=== PATIENT | female | born 1950 | race Caucasian/White ===

== ENCOUNTER 2020-02-25 06:54 | Day surgery (SDC) | payer OTHER ==
[2020-02-24 09:42] VITALS: BMI 38.7
--- NOTE | 2020-02-25 07:04 | HP ---
History & Physical Update - History History: No Change - Physical Physical: No Change - Assessment Assessment: No Change - Plan Plan: No Change (H&P reviwed , no changes , for TVH, a.p repair, pernioplsty)
[2020-02-25] MEDS ORDERED: PROPOFOL 20 ML ONE ×2 (08:54)
[2020-02-25] MEDS ORDERED: fentaNYL CITRATE 250 MCG/5 ML VIAL ONE (08:54)
[2020-02-25] MEDS ORDERED: MIDAZOLAM HCL 2 MG/2 ML SINGLE DOSE VIAL ONE (08:54)
[2020-02-25] MEDS ORDERED: metroNIDAZOLE 0.75% VAGINAL GEL 70 GM TUBE ONE (09:03)
[2020-02-25] MEDS ORDERED: ceFAZolin SODIUM 1 GM VIAL IVPB ONE (09:25)
[2020-02-25] MEDS ORDERED: ONDANSETRON 4 MG/2 ML VIAL IVPUSH PRN ×2 (10:17→11:51)
[2020-02-25] MEDS ORDERED: LACTATED RINGERS SOLUTION 1,000 ML IV SCH (10:30)
[2020-02-25] MEDS ORDERED: NEOSTIGMINE METHYLSULFATE 0.5 MG/ML - 10 ML MDV ONE (11:28)
[2020-02-25] MEDS ORDERED: IBUPROFEN 600 MG TABLET (FP) PO PRN (11:51)
--- NOTE | 2020-02-25 11:59 | OP ---
Operative Note - Note: Operative Date: 02/25/20 Pre-Operative Diagnosis: uterovaginal prolapse, cystorectocele Operation: vaginal hysterectomy , cystorectocele repair , perineoplasty Findings: large cystorectocele , uterine prolapse , gaping vaginal interetous, pelvic adhesions Post-Operative Diagnosis: Same as Pre-op Surgeon: Joshua Cotter Heavy Equipment Field Mechanic: Radha Henao Anesthesia: General Specimens Removed: cx uterus, ant. vaginal mucosa, post. vaginal mucosa Estimated Blood Loss (mls): 250 Drains & Tubes with Location: walker Drains, Volume Out (mls): 400 Blood Volume Replaced (mls): 0 Fluid Volume Replaced (mls): 1,000 Operative Report Dictated: Yes
[2020-02-25] MEDS ORDERED: ELECTROLYTE-148 SOLN 1,000 ML IV SCH (12:00)
[2020-02-25] MEDS: IBUPROFEN 800 MG/8 ML IJ IVPB PRN (12:53)
[2020-02-25] MEDS ORDERED: CEFAZOLIN 1 GM/D5W 1 GM/50 ML BAG IVPB SCH (18:00)
[2020-02-25] MEDS ORDERED: ACETAMINOPHEN 325 MG TABLET (FP) ONE (20:27)
[2020-02-25] MEDS: oxyCODONE HCL 5 MG TABLET PO PRN (20:29)
[2020-02-25] MEDS ORDERED: ACETAMINOPHEN 325 MG TABLET (FP) PO PRN (22:01)
[2020-02-26] MEDS ORDERED: PT OWN MED DRAWER 7, Y5N ONE (01:24)
[2020-02-26] MEDS ORDERED: ceFAZolin SODIUM 1 GM VIAL ONE ×2 (01:25→09:03)
[2020-02-26] MEDS ORDERED: DEXTROSE 5%-WATER - 50 ML IVPB ONE ×2 (01:26→09:03)
[2020-02-26] MEDS: CEFAZOLIN 1 GM in DEXTROSE 5%-WATER - 50 ML IVPB SCH ×2 (01:29→09:20)
[2020-02-26] MEDS: oxyCODONE HCL 5 MG TABLET PO PRN ×2 (01:44→06:10)
[2020-02-26] MEDS: IBUPROFEN 800 MG/8 ML IJ IVPB PRN (08:03)
[2020-02-26 08:08] LABS: BLOOD UREA NITROGEN 13.2 mg/dL (7-18); CALCIUM 8.7 mg/dL (8.5-10.1); CREATININE 0.7 mg/dL (0.55-1.3); POTASSIUM 4.4 mmol/L (3.5-5.1)
[2020-02-26 08:10] LABS: HEMATOCRIT 30.6 % (32.4-45.2); MCH 27.7 pg (25.7-33.7); MCHC 32.7 g/dl (32.0-36.0); MEAN CELL VOLUME 84.7 fl (80-96); MEAN PLT VOLUME 8.7 fl (7.5-11.1); PLATELET COUNT 296 K/MM3 (134-434); RBC 3.61 M/mm3 (3.60-5.2); RDW 16.2 % (11.6-15.6)
[2020-02-26] MEDS ORDERED: BISACODYL 5 MG TABLET.DR (FP) PO ONE (08:29)
[2020-02-26] MEDS ORDERED: GABAPENTIN 100 MG CAPSULE PO SCH (10:00)
[2020-02-26] MEDS ORDERED: LABETALOL HCL 200 MG TABLET (FP) PO SCH (10:00)
[2020-02-26] MEDS ORDERED: ENOXAPARIN NA (PORCINE) 40 MG/0.4 ML DISP.SYRIN SQ SCH (10:00)
[2020-02-26] MEDS ORDERED: amLODIPine BESYLATE 10 MG TABLET (FP) PO SCH (10:00)
[2020-02-26 10:54] VITALS: BP 122/74; PULSE 77; TEMP 98.1
--- NOTE | 2020-02-27 09:20 | OP ---
DATE OF OPERATION: 02/25/2020 PREOPERATIVE DIAGNOSES: Uterovaginal prolapse, cystocele, rectocele. POSTOPERATIVE DIAGNOSES: Uterovaginal prolapse, cystocele, rectocele. PROCEDURE: Transvaginal hysterectomy, cystocele, rectocele and perineoplasty. SURGEON: Joshua Cotter MD COMPENSATION ADMINISTRATOR: Radha Henao MD ANESTHESIA: General. ESTIMATED BLOOD LOSS: 200 mL. OPERATION: Patient was taken to operating room, had adequate general anesthesia induced. In dorsal lithotomy position abdomen and perineum were prepped and draped and the vagina was prepped with Betadine. Then examination under anesthesia revealed a large rectocele and large cystocele with uterine prolapse. No adnexal masses were palpable. Then with a weighted speculum in the vagina anterior and posterior lip of the cervix was grasped with 2 single-tooth tenacula. Anterior vaginal mucosa and posterior vaginal mucosa were infiltrated with diluted solution of vasopressin. Then a circumferential incision was made with the cautery around the cervix. Posterior vaginal mucosa was dissected from the cervix with Metzenbaum scissors and with blunt dissection. Then bladder was also dissected with Metzenbaum scissors and blunt dissection and bladder was pushed up. Then the posterior peritoneum was grasped with a pickup and then entered with the Metzenbaum scissors. Then posterior peritoneum was tacked to the posterior vaginal mucosa with 1-0 Vicryl suture. Then bladder was further pushed up and elevated and then uterosacral ligament was identified and clamped with Gricel bilaterally and cut and the clamp replaced with 0 Vicryl suture bilaterally. These pedicles were help. Parametrium was grasped with Gricel clamp and cut and the clamp replaced with 0 Vicryl suture bilaterally. At this time bladder was further pushed up and then could not enter the anterior peritoneum because of dense adhesions. The bladder was also dissected further and elevated. Uterine artery was identified bilaterally, clamped and cut and the clamp replaced with 0 Vicryl suture bilaterally. The anterior peritoneum was unable to enter because of adhesions in the anterior portion of the vagina. Uterus also was obscured by adhesions and unable to palpate. Part of the upper pedicle was grasped with Gricel clamp and cut and the clamp replaced with 0 Vicryl suture bilaterally and these pedicles were tagged and sutured with 2-0 Vicryl suture. Then the specimen was removed and pelvic cavity irrigated. No active bleeding was seen. There was oozing from the vaginal vault area which was sutured with interrupted sutures of 0 Vicryl and hemostasis was established. Then peritoneum was closed with 0 Vicryl interrupted suture and peritoneum was closed and then posterior vaginal mucosa was closed with interrupted suture of 2-0 Vicryl. Then cystocele repair was started by infiltrating the anterior vaginal mucosa with vasopressin and then vaginal mucosa was undermined with Metzenbaum scissors and from the vaginal mucosa. Bladder was from vaginal mucosa with sharp and blunt dissection and then the bladder was completely from the vaginal mucosa and then with a pursestring suture placed the cystocele was reduced and then interrupted suture of 3-0 Vicryl was placed over the bladder, mattress suture, for reinforcement. Then excess vaginal mucosa was cut and vaginal mucosa was closed with continuous suture of 2-0 Vicryl. Then posterior vaginal mucosa was infiltrated with diluted solution of vasopressin and posterior vaginal mucosa was undermined with Metzenbaum scissors and from the rectum. The rectum was reduced with interrupted suture of 2-0 Vicryl in mattress sutures. Then excess posterior vaginal mucosa was cut and vaginal mucosa was brought together with continuous suture of 2-0 Vicryl. Then perineoplasty was started by removing excess skin from the posterior perineum and then muscles were identified and then a figure-of-8 suture was placed into the muscle and muscles were approximated and then the rest of the procedure the perineum was closed in episiotomy-like fashion and then interrupted suture of 2-0 Vicryl was placed in the skin for reinforcement in the posterior perineum. Starkey catheter was inserted. There was 400 clear urine noted. No active vaginal bleeding was seen. Vaginal packing was inserted. Patient tolerated procedure well, left the OR in good condition. Irving [id number]
--- NOTE | 2020-02-29 11:45 | PATH ---
Surgical Pathology Report Patient Name: CARMEN AWAD Med. Rec. #: [id number] /Age/Gender: 1950 (Age: 69) / F Account: <[id number]> Location: [facility] MED/SURG Taken: 02/25/2020 Received: 02/25/2020 Reported: 02/29/2020 Physicians: Joshua Cotter M.D. Specimen(s) Received UTERUS AND CERVIX, VAGINAL MUCOSA Clinical History Complete uterovaginal prolapse Final Diagnosis UTERUS AND CERVIX, VAGINA MUCOSA, HYSTERECTOMY: ONE SUBSEROSAL LEIOMYOMA WITH HYALINIZATION. ATROPHIC ENDOMETRIUM. CERVIX WITH MILD CHRONIC CERVICITIS, SQUAMOUS METAPLASIA, AND NABOTHIAN CYSTS. PORTIONS OF VAGINA MUCOSA WITH FOCAL PARAKERATOSIS, NEGATIVE FOR DYSPLASIA. Electronically Signed Sheng Monsivais M.D. Gross Description Received in formalin labeled "uterus and cervix, vaginal mucosa," is an 18 g markedly deformed appearing uterus with an attached cervix and no attached adnexa. The specimen measures 7.5 cm from superior to inferior, 2 cm from left to right and 1.7 cm from anterior to posterior. The serosa is wilson-castillo with multifocal defects and a 0.8 cm in greatest dimension bulging subserosal nodule. The cut surface of the subserosal nodule is wilson and rubbery with whorled architecture. No areas of hemorrhage or necrosis are identified. The attached cervix measures 3.5 cm in length and averages 1.5 cm in diameter. The ectocervix is wilson, smooth and glistening. The endocervix is unremarkable. The endometrial cavity measures 3.5 cm in length and 0.9 cm from cornu to cornu. The endometrium is wilson-red and averages 0.1 cm in thickness. The myometrium is wilson-pink and averages 0.8 cm in thickness. There are no intramural nodules identified. Separately received within the same container are 2 wilson, irregular, unoriented and unremarkable portions of mucosal tissue measuring 4.7 x 1.6 x 0.3 cm and 5.4 x 1.7 x 0.3 cm. Third Miller sections are submitted in 7 cassettes as follows: 1-2-cervix; 0-8-rxxsqrabeczpcp; 6-subserosal nodule; 7-vaginal mucosa. /02/25/2020 saudi/02/25/2020
== END 2020-02-26 11:06 | disposition home or self-care (01) ==
LOC: JASUSAT 06:54 → EDSTATUS 09:00 → J2C 11:51 → UNDOADMIN 11:51 → J2C 19:30 → J7W 19:30 → JASUSAT 02-26 11:06
PROVIDERS: ATTEND Obstetrics & Gynecology
PROC: 0JQC0ZZ Repair Pelvic Region Subcutaneous Tissue and Fascia, Open Approach (ICD-10-PCS; 2020-02-25)
PROC: 0UT97ZZ Resection of Uterus, Via Natural or Artificial Opening (ICD-10-PCS; principal; 2020-02-25 09:00)
PROC: 0JQC0ZZ Repair Pelvic Region Subcutaneous Tissue and Fascia, Open Approach (ICD-10-PCS; 2020-02-25 09:00)
DX: N81.3 Complete uterovaginal prolapse (principal)
CPT/HCPCS: 36415; 80048; 85027; 86850; 86900; 86901; 88305-TC; 94760

== ENCOUNTER 2023-01-17 10:00 | Day surgery (SDC) | payer OTHER ==
[2023-01-17] MEDS ORDERED: BUPIVACAINE LIPOSOME/PF (EXPAREL) 266 MG/20 ML VIAL ONE (10:16)
[2023-01-17] MEDS ORDERED: BUPIVACAINE HCL/PF 0.5% (5 MG/ML) 30 ML VIAL IJ ONE (10:16)
[2023-01-17] MEDS ORDERED: BUPIVACAINE HCL/PF 0.5% (5MG/ML) 10 ML VIAL ONE (10:16)
[2023-01-17] MEDS ORDERED: TRANEXAMIC ACID 1000 MG/10 ML VIAL IVPUSH ONE (10:32)
[2023-01-17] MEDS ORDERED: CELECOXIB 200 MG CAPSULE PO ONE (10:32)
[2023-01-17] MEDS ORDERED: CEFAZOLIN 2 GM in DEXTROSE 5%-WATER - 50 ML IVPB ONE (10:45)
[2023-01-17 10:49] VITALS: BMI 35.9
[2023-01-17] MEDS ORDERED: MIDAZOLAM HCL 2 MG/2 ML SINGLE DOSE VIAL ONE (11:00)
[2023-01-17] MEDS ORDERED: ONDANSETRON 4 MG/2 ML VIAL IVPUSH PRN (11:08)
[2023-01-17] MEDS ORDERED: oxyCODONE HCL 5 MG TABLET PO PRN ×2 (11:10)
[2023-01-17] MEDS ORDERED: LACTATED RINGERS SOLUTION 1,000 ML IV SCH ×2 (11:15→13:00)
[2023-01-17] MEDS ORDERED: ceFAZolin SODIUM 1 GM VIAL ONE ×2 (11:15→13:21)
[2023-01-17] MEDS ORDERED: VANCOMYCIN 1,000 MG VIAL (RESTRICTED TO ID ONLY) ONE (11:15)
[2023-01-17] MEDS ORDERED: PIPERACILLIN/TAZOBACTAM 3.375 GM VIAL IVPB ONE (11:23)
[2023-01-17] MEDS ORDERED: TRANEXAMIC ACID 1000 MG/10 ML VIAL ONE (13:21)
[2023-01-17] MEDS ORDERED: KETOROLAC TROMETHAMINE 30 MG/1 ML VIAL IVPUSH ONE (14:45)
[2023-01-17] MEDS ORDERED: KETOROLAC TROMETHAMINE 30 MG/1 ML VIAL IVPUSH SCH (14:45)
[2023-01-17] MEDS ORDERED: FENTANYL CITRATE/PF 50 MCG/ML VIAL ONE (15:00)
[2023-01-17] MEDS ORDERED: KETOROLAC TROMETHAMINE 30 MG/1 ML VIAL ONE (15:06)
[2023-01-17] MEDS ORDERED: ONDANSETRON 4 MG/2 ML VIAL ONE (15:09)
[2023-01-17] MEDS: FENTANYL CITRATE/PF 50 MCG/ML VIAL IVPUSH SCH (17:54)
[2023-01-17] MEDS: ACETAMINOPHEN 325 MG TABLET (FP) PO PRN (21:15)
[2023-01-17] MEDS: CEFAZOLIN 2 GM in DEXTROSE 5%-WATER - 50 ML IVPB SCH (21:16)
[2023-01-17] MEDS: SENNOSIDES/DOCUSATE COMBO (SENNA PLUS) TABLET (UD) PO SCH (21:17)
[2023-01-17] MEDS: LABETALOL HCL 200 MG TABLET (FP) PO SCH (21:17)
[2023-01-17] MEDS ORDERED: amLODIPine BESYLATE 5 MG TABLET (FP) PO SCH (22:00)
[2023-01-18 01:24] VITALS: RESP 17
[2023-01-18] MEDS: CEFAZOLIN 2 GM in DEXTROSE 5%-WATER - 50 ML IVPB SCH (06:42)
[2023-01-18] MEDS: ACETAMINOPHEN 325 MG TABLET (FP) PO PRN (06:45)
[2023-01-18] MEDS ORDERED: ASPIRIN 325 MG TABLET PO SCH (08:00)
[2023-01-18 08:44] LABS: HEMATOCRIT 30.9 % (32.4-45.2); HEMOGLOBIN 9.9 G/dL (10.7-15.3); MCH 29.1 pg (25.7-33.7); MCHC 32.1 g/dl (32.0-36.0); MEAN CELL VOLUME 90.9 fl (80-96); PLATELET COUNT 289.6 10^3/uL (134-434); RDW 17.4 % (11.6-15.6); WHITE BLOOD COUNT 6.9 10^3/uL (4.0-10.8)
[2023-01-18] MEDS: LABETALOL HCL 200 MG TABLET (FP) PO SCH (09:17)
[2023-01-18] MEDS: SENNOSIDES/DOCUSATE COMBO (SENNA PLUS) TABLET (UD) PO SCH (09:17)
[2023-01-18 09:32] VITALS: BP 125/62; PULSE 86; TEMP 97.8
[2023-01-18] MEDS ORDERED: PANTOPRAZOLE 40 MG TABLET PO SCH (10:00)
[2023-01-18] MEDS ORDERED: MULTIVITAMINS (DAILY MVI) TABLET (FP) PO SCH (10:00)
== END 2023-01-18 12:18 | disposition home health service (06) ==
LOC: FASUSAT 10:00 → FM/S 16:39 → FASUSAT 01-18 12:18
PROVIDERS: ATTEND Orthopaedic Surgery
PROC: 8E0Y0CZ Robotic Assisted Procedure of Lower Extremity, Open Approach (ICD-10-PCS; 2023-01-17)
PROC: 0SRD0J9 Replacement of Left Knee Joint with Synthetic Substitute, Cemented, Open Approach (ICD-10-PCS; principal; 2023-01-17 13:12)
DX: M17.12 Unilateral primary osteoarthritis, left knee (principal); I10 Essential (primary) hypertension
CPT/HCPCS: 20985; 27447; C1776; S2900; 36415; 73560-TC-LT-FY; 85027; 94760; 97010-GP; 97116-GP; 97162-GP; C1713; C1889

== ENCOUNTER 2023-11-16 13:51 | Emergency (ER) | payer OTHER ==
[2023-11-16 14:08] VITALS: BP 144/79; PULSE 62; RESP 16; TEMP 98.1; BMI 39.0
[2023-11-16] MEDS ORDERED: ACETAMINOPHEN 325 MG TABLET (FP) ONE (15:01)
[2023-11-16] MEDS: ACETAMINOPHEN 500 MG TABLET (FP) PO ONE (15:16)
== END 2023-11-16 18:00 | disposition home or self-care (01) ==
LOC: JER 13:51
DX: S09.90XA Unspecified injury of head, initial encounter (principal); W01.0XXA Fall on same level from slipping, tripping and stumbling without subsequent striking against object, initial encounter
CPT/HCPCS: 70450-TC; 71045-TC-FY; 72125-TC; 72170-TC-FY; 99284-25

== ENCOUNTER 2025-05-30 05:40 | Day surgery (SDC) | payer OTHER ==
[2025-05-26 11:48] VITALS: BMI 34.0
[2025-05-30 10:02] VITALS: RESP 20; TEMP 98
[2025-05-30 10:32] VITALS: BP 102/46; PULSE 64
== END 2025-05-30 10:45 | disposition home or self-care (01) ==
LOC: JASU-ENDO 05:40
PROVIDERS: ATTEND Student in an Organized Health Care Education/Training Program
PROC: 0DBN8ZX Excision of Sigmoid Colon, Via Natural or Artificial Opening Endoscopic, Diagnostic (ICD-10-PCS; 2025-05-30)
PROC: 0DBP8ZX Excision of Rectum, Via Natural or Artificial Opening Endoscopic, Diagnostic (ICD-10-PCS; principal; 2025-05-30 09:30)
DX: Z12.11 Encounter for screening for malignant neoplasm of colon (principal); D12.8 Benign neoplasm of rectum; D12.5 Benign neoplasm of sigmoid colon; K57.30 Diverticulosis of large intestine without perforation or abscess without bleeding
CPT/HCPCS: 88305-TC